=== PATIENT | male | born 1955 | race Caucasian/White ===

== ENCOUNTER → 2016-06-17 | Outpatient (CLI) | payer BC ==
[~2016-06-17] MED LIST: IOPAMIDOL (ISOVUE-300) 100 ML BTL IV ONE
== END ==
LOC: FIMAGING 14:45
PROVIDERS: ATTEND Nurse Practitioner Family
DX: R10.11 Right upper quadrant pain (principal)
CPT/HCPCS: Q9967

== ENCOUNTER → 2016-10-28 | Outpatient (CLI) | payer BC | LOC: FIMAGING 08:02 | PROVIDERS: ATTEND Family Medicine | DX: M65.241 Calcific tendinitis, right hand (principal) ==

== ENCOUNTER 2017-07-06 13:43 | Inpatient (IN) | payer BC ==
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
[2017-07-06 15:42] LABS: PLATELET COUNT 218 10^3/uL (150-400)
[2017-07-06] MEDS ORDERED: HYDROmorphONE/DILAUDID 2 MG/ML INJ IVP ONE (15:46)
[2017-07-06] MEDS ORDERED: ONDANSETRON 4 MG/2 ML VIAL ONE ×2 (15:56→18:09)
[2017-07-06] MEDS ORDERED: HYDROmorphONE/DILAUDID 1 MG/ML INJ IVP ONE (17:01)
[2017-07-06] MEDS ORDERED: BUPIVACAINE/EPI 0.5% 30 ML SDV ONE (17:10)
[2017-07-06] MEDS ORDERED: ONDANSETRON 4 MG/2 ML VIAL IVP PRN ×2 (17:41→18:53)
[2017-07-06] MEDS ORDERED: OXYCODONE/APAP 5/325 TAB PO PRN (17:41)
[2017-07-06] MEDS ORDERED: ceFAZolin 2 GM/SWFI 2 GM/20 ML SYR IVP ONE (17:43)
[2017-07-06] MEDS ORDERED: DIAZEPAM 5 MG TAB PO PRN (17:44)
[2017-07-06] MEDS ORDERED: D5W 1/2 NS W/ 20 KCl/L 1,000 ML IV SCH (17:45)
[2017-07-06] MEDS ORDERED: ceFAZolin 2 GM/SWFI 20 ML SYR IVP ONE (18:01)
[2017-07-06] MEDS ORDERED: fentaNYL 100 MCG/2 ML INJ ONE ×3 (18:06→19:29)
[2017-07-06] MEDS ORDERED: REMIFENTANIL HCL 1 MG VIAL ONE (18:06)
[2017-07-06] MEDS ORDERED: PROPOFOL 200 MG/20 ML VIAL ONE (18:07)
[2017-07-06] MEDS ORDERED: PROPOFOL/EMULSION 500 MG/50 ML BOTTLE IV ONE (18:07)
[2017-07-06] MEDS ORDERED: ROCURONIUM 50 MG/5 ML VIAL ONE (18:09)
[2017-07-06] MEDS ORDERED: DEXAMETHASONE 4 MG/ML VIAL ONE (18:10)
[2017-07-06] MEDS ORDERED: RANITIDINE 50 MG/2 ML VIAL ONE (18:10)
[2017-07-06] MEDS ORDERED: LIDOCAINE 2% 5 ML SDV ONE (18:11)
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
[2017-07-06] MEDS ORDERED: epHEDrine SULFATE 10 MG/ML SYR ONE ×2 (18:28→18:31)
--- NOTE | 2017-07-06 18:37 | PDANEPAE ---
ANE History of Present Illness L Hip fracture ANE Past Medical History - Cardiovascular History Hx Hypertension: No Hx Arrhythmias: No Hx Chest Pain: No Hx Coronary Artery / Peripheral Vascular Disease: No Hx CHF / Valvular Disease: No Hx Palpitations: No - Pulmonary History Hx COPD: No Hx Asthma/Reactive Airway Disease: No Hx Recent Upper Respiratory Infection: No Hx Oxygen in Use at Home: No Hx Sleep Apnea: No Sleep Apnea Screening Result - Last Documented: Negative - Endocrine History Hx Diabetes: No Hypothyroid: No Hyperthyroid: No Obesity: no - Renal History Hx Renal Disorders: No - Liver History Hx Hepatic Disorders: No - Neurological & Psychiatric Hx Hx Neurological and Psychiatric Disorders: No Neurological / Psychiatric History Comment: H/O Closed Head Injury - Cancer History Hx Cancer: No - Congenital Disorder History Hx Congenital Disorders: No - GI History GERD: mild Hx Gastrointestinal Disorders: Yes - Surgical History Prior Surgeries: Craniotomy ANE Review of Systems Review of Systems: - Exercise capacity Exercise capacity: >=4 METS METS (RN): 5 METS ANE Patient History - Allergies Allergies/Adverse Reactions: No Known Allergies Allergy (Verified 07/06/17 13:53) - Home Medications Home Medications: Ascorbic Acid [Vitamin C 500 mg (*)] 500 mg PO DAILY 07/06/17 [Last Taken ] Aspirin EC [Aspirin EC 81 mg (*)] 81 mg PO DAILY 07/06/17 [Last Taken 07/06/17] Cholecalciferol Vit D3 [Vitamin D3 2000 units tab (OTC)] 2,000 units PO DAILY [Last Taken 07/06/17] Cyanocobalamin [Vitamin B12 (*)] 1,000 mcg PO DAILY 07/06/17 [Last Taken ] Herbals/Supplements -Info Only 1 ea PO DAILY 07/06/17 [Last Taken Unknown] [place]-3 Fatty Acids [Fish Oil 1000 mg (*)] 1,000 mg PO DAILY 07/06/17 [Last Taken 07/06/17] Omeprazole/Sodium Bicarbonate [Zegerid 20 mg Capsule] 20 each PO DAILY 07/06/17 [Last Taken 07/06/17] Vit C/E/Zn/Coppr/Lutein/Zeaxan [Ocuvite Lutein Capsule] 1 each PO DAILY [Last Taken 07/06/17] celeCOXIB [Celebrex (*)] 200 mg PO ONCE 07/06/17 [Last Taken 07/06/17] - NPO status NPO Since - Liquids (Date): 07/06/17 NPO Since - Liquids (Time): 17:00 NPO Since - Solids (Date): 07/06/17 NPO Since - Solids (Time): 10:00 - Anes Hx Anes Hx: no prior problems - Smoking Hx Smoking Status: Never smoked Marijuana use: No - Alcohol Use Alcohol Use: Sober - Family Anes Hx Family Anes Hx: neg - N/A ANE Labs/Vital Signs - Labs Result Diagrams: 07/06/17 15:30 07/06/17 15:30 - Vital Signs Blood Pressure: 93/69 Heart Rate: 80 Respiratory Rate: 18 O2 Sat (%): 92 Height: 185.42 cm Weight: 86.183 kg ANE Physical Exam - Airway Neck exam: FROM Mallampati Score: Class 1 Mouth exam: normal dental/mouth exam - Pulmonary Pulmonary: no respiratory distress, no rales or rhonchi, clear to auscultation - Cardiovascular Cardiovascular: regular rate and rhythym, no murmur, rub, or gallop - ASA Status ASA Status: II ANE Anesthesia Plan Anesthesia Plan: general endotracheal anesthesia Total IV Anesthesia: No
[2017-07-06] MEDS ORDERED: ACETAMINOPHEN 500 MG TAB PO PRN (18:53)
[2017-07-06] MEDS ORDERED: epHEDrine SULFATE 10 MG/ML SYR IVP PRN (18:53)
[2017-07-06] MEDS ORDERED: HYDROmorphONE/DILAUDID 2 MG/ML INJ IVP PRN (18:53)
[2017-07-06] MEDS ORDERED: NALOXONE HCL 0.4 MG/ML INJ IVP PRN (18:53)
[2017-07-06] MEDS ORDERED: HYDROCODONE/APAP 5/325 TAB PO PRN (18:53)
[2017-07-06] MEDS ORDERED: LR 500 ML IV PRN (18:53)
[2017-07-06] MEDS ORDERED: PHENYLEPHRINE HCL 100 MCG/ML SYR IVP PRN (18:53)
[2017-07-06] MEDS ORDERED: oxyCODONE IR 5 MG TAB PO PRN (18:53)
[2017-07-06] MEDS ORDERED: PROMETHAZINE HCL 25 MG/ML INJ IVP PRN (18:53)
[2017-07-06] MEDS ORDERED: NEOSTIGMINE METHYLSULFATE 10 MG/10 ML MDV ONE (18:59)
[2017-07-06] MEDS ORDERED: GLYCOPYRROLATE 0.2 MG/1 ML VIAL ONE ×4 (19:00)
--- NOTE | 2017-07-06 19:10 | PDMN ---
Medical Necessity Medical necessity: C/M review: Patient [place] [facility] [place] F[place], Open Repair: Acute nondisplaced communited intertrochanteric fracture of left hip on xray requiring 07/06/2017 urgent surgery - left hip TFN ( trochanteric fixation nail) (CPT 67837 - Inpatient per Medicare guidelines).. MD anticipates > 2 MN LOS for ongoing med nec for eval and TX of above.
[2017-07-06] MEDS ORDERED: KETOROLAC 30 MG/1 ML SDV IVP PRN (19:18)
--- NOTE | 2017-07-06 19:18 | POSTANESTH ---
Post Anesthetic Evaluation Cardiovascular Status: Normal, Stable Respiratory Status: Normal, Stable Level of Consciousness/Mental Status: Can Participate in Eval Pain Control: Adequate, Prn Tx Ordered Nausea/Vomiting Control: Adequate, Prn Tx Ordered Complications Possibly Related to Anesthesia: None Noted
[2017-07-06] MEDS ORDERED: KETOROLAC 15 MG/1 ML SDV ONE (19:28)
[2017-07-06] MEDS: fentaNYL 100 MCG/2 ML INJ IVP PRN ×2 (19:30→19:43)
[2017-07-06] MEDS ORDERED: KETOROLAC 30 MG/1 ML SDV ONE (19:35)
--- NOTE | 2017-07-07 06:51 | PDIAF ---
- Diagnosis Diagnosis: left hip fx Code Status: Full Code - Medication Management Discharge Medications: Medications to Continue on Transfer Ascorbic Acid [Vitamin C 500 mg (*)] 500 mg PO DAILY 07/06/17 [Last Taken ] Cholecalciferol Vit D3 [Vitamin D3 2000 units tab (OTC)] 2,000 units PO DAILY [Last Taken 07/06/17] Cyanocobalamin [Vitamin B12 (*)] 1,000 mcg PO DAILY 07/06/17 [Last Taken ] Herbals/Supplements -Info Only 1 ea PO DAILY 07/06/17 [Last Taken Unknown] [place]-3 Fatty Acids [Fish Oil 1000 mg (*)] 1,000 mg PO DAILY 07/06/17 [Last Taken 07/06/17] Omeprazole/Sodium Bicarbonate [Zegerid 20 mg Capsule] 20 each PO DAILY 07/06/17 [Last Taken 07/06/17] Vit C/E/Zn/Coppr/Lutein/Zeaxan [Ocuvite Lutein & Zeaxanthin Cp] 1 each PO DAILY 07/06/17 [Last Taken 07/06/17] celeCOXIB [Celebrex (*)] 200 mg PO ONCE 07/06/17 [Last Taken 07/06/17] Enoxaparin [Lovenox 40 MG (*)] 40 mg SC DAILY #14 syr 07/07/17 [Last Taken Unknown] oxyCODONE/APAP 5/325 [Percocet 5/325 (*)] 1 - 2 tab PO Q3HRS PRN #40 tab [Last Taken Unknown] Discharge Medications: Refer to the Discharge Home Medication list for PRN reason. - Orders Services needed: Physical Therapy Diet Recommendation: no restrictions on diet Diet Texture: Regular Texture Diet Activity/Weight Bearing Restrictions: tdwb. rom as yuliya. daily dressing changes. may shower without bandage. f/u at two weeks. seek attn for increasing pain, drainage or other focal complaint Additional Instructions: tdwb rom as yuliya daily dressing changes may shower without bandage f/u at two weeks seek attn for increasing pain, drainage or other focal complaint - Follow Up Care Current Providers and Referrals: Marilyn Meneses MD [Primary Care Provider] - As per Instructions Dagoberto Hui MD [Medical Doctor] - As per Instructions
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
[2017-07-07 07:44] VITALS: BP 100/60
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
[2017-07-07] MEDS ORDERED: SODIUM BICARBONATE PO SCH ×2 (09:00)
[2017-07-07] MEDS ORDERED: ENOXAPARIN 40 MG/0.4 ML SYR SC SCH (09:00)
[2017-07-07] MEDS ORDERED: PRESERVISION AREDS2 FORMULA EYE VIT 1 EACH PO SCH (09:00)
[2017-07-07] MEDS ORDERED: OMEPRAZOLE PO SCH ×2 (09:00)
--- NOTE | 2017-07-07 16:07 | ASMTCMCOM ---
CM Note CM Note Notes: Pt had open reduction and external fixation for hip fracture. PT rec home, pt medically stable for d/c with support. No CM d/c needs identified. Date Signed: 07/07/2017 04:06 PM Electronically Signed By:JYOTI Rebolledo
== END 2017-07-07 15:41 | disposition home health service (06) | DRG 482 ==
LOC: F3N 17:07
PROVIDERS: ADMIT Orthopaedic Surgery; ATTEND Orthopaedic Surgery
PROC: BQ14ZZZ Fluoroscopy of Left Femur (ICD-10-PCS; 2017-07-06)
PROC: 0QS706Z Reposition Left Upper Femur with Intramedullary Internal Fixation Device, Open Approach (ICD-10-PCS; principal; 2017-07-06 18:00)
DX: S72.145A Nondisplaced intertrochanteric fracture of left femur, initial encounter for closed fracture (principal); V19.3XXA Pedal cyclist (driver) (passenger) injured in unspecified nontraffic accident, initial encounter; Y93.55 Activity, bike riding; Z87.81 Personal history of (healed) traumatic fracture
CPT/HCPCS: 96374; 97116-GP; 97161-GP; C1713; J0690; J1100; J1170; J1650; J1885; J2370; J2405; J2704; J2780; J3010

== ENCOUNTER → 2017-08-19 | Outpatient (CLI) | payer BC | LOC: BMCIMAGING 09:06 | PROVIDERS: ATTEND Orthopaedic Surgery | DX: Z47.89 Encounter for other orthopedic aftercare (principal); S72.145D Nondisplaced intertrochanteric fracture of left femur, subsequent encounter for closed fracture with routine healing ==

== ENCOUNTER → 2018-01-01 | Outpatient (CLI) | payer BC | LOC: BMCIMAGING 09:19 | PROVIDERS: ATTEND Orthopaedic Surgery | DX: S72.142A Displaced intertrochanteric fracture of left femur, initial encounter for closed fracture (principal) ==

== ENCOUNTER → 2018-07-01 | Outpatient (CLI) | payer BC | LOC: BMCIMAGING 10:36 | PROVIDERS: ATTEND Orthopaedic Surgery | DX: Z47.1 Aftercare following joint replacement surgery (principal); Z96.642 Presence of left artificial hip joint ==

== ENCOUNTER → 2018-08-19 | Outpatient (CLI) | payer BC | LOC: FIMAGING 08:57 ==